=== PATIENT | male | born 1955 | race Caucasian/White ===

== ENCOUNTER → 2016-12-07 | Day surgery (SDC) | payer OTHER ==
[~2016-12-07] VITALS: Ht 180.3 cm; Wt 134.0 kg
[~2016-12-07] MED LIST: ALLO300T2 PO; BACITRACIN TOP OINT 15 GM TUBE ONE; BUPIVACAINE HCL PF 0.5% 30 ML VIAL ONE; CHLORHEXIDINE GLUCONATE 2 % 1 PACK (2 CLOTHS) TOPICAL PRN; DIAZ5 PO; HYDR-3533 PO; HYDR12.57 PO; IBUP-232 PO; INSULIN HUMAN REGULAR 1,000 UNITS/10 ML VIAL SQ PRN; LACTATED RINGER'S 1000 ML INJ 500 ML IV SCH; LACTATED RINGER'S 1000 ML IV PRN; LIDOCAINE HCL 2% 50 ML VIAL ONE; METOPROLOL TARTRATE 25 MG TAB PO PRN; MIDAZOLAM HCL 2 MG/2 ML VIAL ONE; NAPR250T PO; POTA4.25 PO; POVIDONE IODINE 5% (ANTISEPSIS KIT) 4 APPLICATIONS EACH NARE PRN; PROPOFOL 200 MG/20 ML AMP IV ONE; SODIUM CHLORID 0.9% 500 ML IV PRN; TELM40 PO; TYLE325T PO; VIAG50TA PO; ceFAZolin 2 GM PREMIX 50 ML IV SCH
[2016-12-07 10:51] VITALS: BP 134/86; PULSE 73; RESP 18; TEMP 97.5; O2SAT 97
--- NOTE | 2016-12-07 13:22 | EKG ---
Date Performed: 12/07/2016 Time Performed: 11:50:56 PTAGE: 61 years EKG: Sinus rhythm MODERATE INTRAVENTRICULAR CONDUCTION DELAY BORDERLINE ECG Compared to prior tracing no significant c j carlos PREVIOUS TRACING : 05/01/2010 13.49 DOCTOR: Tushar Ugalde Interpretating Date/Time 12/07/2016 13:20:31
[2016-12-07 13:30] VITALS: TEMP 98.1
--- NOTE | 2016-12-07 13:31 | PD.OP ---
Operative Report Preoperative Diagnosis: (1) Carpal tunnel syndrome, left (2) Ganglion of flexor tendon sheath of left thumb Postoperative Diagnosis: (1) Carpal tunnel syndrome, left (2) Ganglion of flexor tendon sheath of left thumb (3) stenosing tenosynovitis left thumb Procedure: open left carpal tunnel release flexor sheath ganglion excision left thumb trigger release left thumb Anesthesia: mac Surgeon: Sedrick Nuñez Student Development Dean(s): francisco Operation and Findings: tight carpal tunnel ligament with compression of the median nerve flexor sheath ganglion left thumb thickening of the A 1 haley left thumb Sedrick Nuñez MD Dec 07, 2016 13:31
[2016-12-07 14:15] VITALS: BP 103/72; PULSE 67; RESP 16; O2SAT 97
--- NOTE | 2016-12-07 15:10 | MP ---
cc: SEDRICK SANTACRUZ MD DATE OF SURGERY: 12/07/2016 PREOPERATIVE DIAGNOSIS 1. Carpal tunnel syndrome, left side. 2. Flexor sheath ganglion, left thumb. POSTOPERATIVE DIAGNOSIS 1. Carpal tunnel syndrome, left side. 2. Flexor sheath ganglion, left thumb. 3. Stenting tenosynovitis, left thumb. PROCEDURE 1. Open left carpal tunnel release. 2. Flexor sheath ganglion excision, left thumb. 3. Trigger release, left thumb. SURGEON Dr. Santacruz ANESTHESIA MAC. ESTIMATED BLOOD LOSS Minimal. TOURNIQUET TIME 47 minutes at 250 mmHg. SPECIMEN Specimen was sent for pathology. DISPOSITION The patient was recovered and sent to the recovery room in stable condition. INDICATIONS The patient is a 61-year-old male who presented with complaints of tingling and numbness involving the left hand of several years' duration and almost constant in nature. He also complained of worsening symptoms with restricted activities and symptoms at night of tingling and numbness. The patient also complained of a mass over the volar aspect of the left thumb. He had an attempted aspiration with recurrence of the mass. He had a tender nodule over the A1 haley region of the thumb with positive transillumination test. The patient was consented for open left carpal tunnel release and flexor sheath ganglion excision, left thumb. He was explained the risks and benefits of the procedure. DETAILS OF PROCEDURE The patient was brought to the operating room. Under MAC anesthesia the left upper extremity was thoroughly prepped and draped. An incision site was marked over the carpal tunnel region measuring 3-4 cm corresponding to the radial margin of the ring finger. An incision site was marked over the volar aspect of the thumb in a Gene zig-zag fashion measuring about 3 cm. The limb was exsanguinated using an Esmarch tourniquet. The tourniquet was inflated to 250 mmHg. About 8 cc of local anesthesia containing a mixture of 2% lidocaine and 0.5% Marcaine was injected across the incision site. The incision was made over the carpal tunnel region. Soft tissue dissection was carried out. Bleeding points were cauterized with bipolar cautery. Using a retractor the palmaris fascia was exposed. Initially this was released in a longitudinal fashion. The carpal tunnel ligament was exposed. The carpal tunnel ligament was released in a distal to proximal direction. Complete release was carried out. The deep volar forearm fascia was released. The median nerve was found to be compressed and adherent to the undersurface of the carpal tunnel ligament. The median nerve was from the carpal tunnel ligament by blunt dissection. After ensuring complete release the palmar skin was approximated using 5-0 nylon in a continuous horizontal mattress fashion. Attention was then directed to the base of the thumb. An incision was made over the volar aspect of the thumb in a zig-zag fashion. Skin flaps were elevated. The digital neurovascular bundles were protected out of harm's way. There was a flexor sheath ganglion arising from the A1 haley region of the thumb which was from surrounding soft tissue to the flexor sheath. The ganglion was excised. There was evidence of thickening of the A1 haley of the thumb and the decision was made to proceed with release of the A1 haley. The A1 haley was released in a proximal to distal direction. A complete release was carried out. There was evidence of mild fraying of the FPL tendon. The tendon was delivered out of the wound. The thumb was put through a range of motion. No evidence of constricting bands were noted. Proximally under vision constricting bands were using blunt dissection. A thorough wash was given. Skin flaps were then approximated using 5-0 nylon in a horizontal mattress interrupted fashion. Xeroform and bacitracin dressing was applied. Bulky hand dressing was applied which was held in place by Sof-Rol and bias hand wrap. The tourniquet was deflated. Total tourniquet time was 47 minutes. The patient had good distal circulation after release of the tourniquet. He was recovered and sent to the recovery room in stable condition. He will follow up with me in 2-3 days' time for dressing change. Sedrick Santacruz MD SE/MANJINDER /1:39 PM /2:53 PM AL
== END | disposition home or self-care (01) ==
LOC: PHSDC 09:55
PROVIDERS: ATTEND Surgery Surgery of the Hand
DX: G56.02 Carpal tunnel syndrome, left upper limb (principal); M67.442 Ganglion, left hand; M65.9 Synovitis and tenosynovitis, unspecified; I10 Essential (primary) hypertension; Z79.899 Other long term (current) drug therapy
CPT/HCPCS: 01810; 26055; 26160; 64721; 88304; 93005; J0690; J2250; J7120

== ENCOUNTER → 2017-02-17 | Outpatient (CLI) | payer OTHER ==
[~2017-02-17] MED LIST changes: -BACITRACIN TOP OINT 15 GM TUBE ONE; -BUPIVACAINE HCL PF 0.5% 30 ML VIAL ONE; -CHLORHEXIDINE GLUCONATE 2 % 1 PACK (2 CLOTHS) TOPICAL PRN; +DULO1CAP2 PO; -INSULIN HUMAN REGULAR 1,000 UNITS/10 ML VIAL SQ PRN; -LACTATED RINGER'S 1000 ML INJ 500 ML IV SCH; -LACTATED RINGER'S 1000 ML IV PRN; -LIDOCAINE HCL 2% 50 ML VIAL ONE; -METOPROLOL TARTRATE 25 MG TAB PO PRN; -MIDAZOLAM HCL 2 MG/2 ML VIAL ONE; -NAPR250T PO; -POVIDONE IODINE 5% (ANTISEPSIS KIT) 4 APPLICATIONS EACH NARE PRN; -PROPOFOL 200 MG/20 ML AMP IV ONE; -SODIUM CHLORID 0.9% 500 ML IV PRN; -ceFAZolin 2 GM PREMIX 50 ML IV SCH
[2017-02-17 16:16] LABS: MAGNESIUM 2.1 MG/DL (1.5-2.5); URIC ACID 6.6 MG/DL (2.6-7.2)
[2017-02-17 16:17] LABS: AUTOMATED NEUTROPHIL # 2.6 TH/MM3 (1.8-7.7); BASOPHIL % 0.7 % (0.0-2.0); EOSINOPHIL # 0.1 TH/MM3 (0-0.4); EOSINOPHIL % 1.8 % (0.0-4.0); HEMATOCRIT 41.4 % (39.0-51.0); HEMO FLAGS DIFF FINAL; LYMPH % 36.6 % (9.0-44.0); LYMPHOCYTE # 1.8 TH/MM3 (1.0-4.8); MEAN CORPUSCULAR HEMOGLOBIN 32.5 PG (27.0-34.0); MONO % 8.1 % (0.0-8.0); NEUT % 52.8 % (16.0-70.0); PLATELET COUNT 198 TH/MM3 (150-450); RED BLOOD COUNT 4.45 MIL/MM3 (4.50-5.90); RED CELL DISTRIBUTION WIDTH 13.5 % (11.6-17.2)
[2017-02-17 16:18] LABS: ANION GAP 8 MEQ/L (5-15); AST (GOT) 17 U/L (15-37); BICARBONATE 26.4 MEQ/L (21.0-32.0); BLOOD UREA NITROGEN 12 MG/DL (7-18); CHLORIDE 104 MEQ/L (98-107); GLOMERULAR FILTRATION RATE 73 ML/MIN (>89); GLUCOSE,FASTING 107 MG/DL (74-99); POTASSIUM 3.6 MEQ/L (3.5-5.1); SODIUM (NA) 138 MEQ/L (136-145)
[2017-02-17 16:20] LABS: ALKALINE PHOSPHATASE 58 U/L (45-117); ALT (GPT) 28 U/L (12-78); HDL CHOLESTEROL 39.2 MG/DL (40.0-60.0); LDL CHOLESTEROL 106 MG/DL (0-99); TOTAL BILIRUBIN ADULT 0.7 MG/DL (0.2-1.0)
[2017-02-17 21:25] LABS: HEMOGLOBIN A1a 0.9 %; HEMOGLOBIN A1b 1.7 %; HEMOGLOBIN Ao 86.3 %; HEMOGLOBIN LA1C 1.8 %; HEMOGLOBIN P3 3.5 %
== END ==
LOC: PLAB 11:49
PROVIDERS: ATTEND Internal Medicine Nephrology
DX: E55.9 Vitamin D deficiency, unspecified (principal); N20.0 Calculus of kidney; E78.2 Mixed hyperlipidemia; G47.00 Insomnia, unspecified; R73.01 Impaired fasting glucose; E16.1 Other hypoglycemia; I12.9 Hypertensive chronic kidney disease with stage 1 through stage 4 chronic kidney disease, or unspecified chronic kidney disease; N18.2 Chronic kidney disease, stage 2 (mild)
CPT/HCPCS: 36415; 80053; 80061; 82306; 83036; 83735; 83970; 84100; 84550; 85025

== ENCOUNTER → 2017-06-18 | Outpatient (CLI) | payer OTHER ==
[2017-06-18 14:03] LABS: PROSTATE SPECIFIC ANTIGEN 1.68 NG/ML (0.00-4.00)
== END ==
LOC: PLAB 11:22
DX: E55.9 Vitamin D deficiency, unspecified (principal); Z12.5 Encounter for screening for malignant neoplasm of prostate
CPT/HCPCS: 36415; 82306; 84153

== ENCOUNTER → 2017-11-02 | Outpatient (CLI) | payer OTHER ==
[2017-11-02 17:44] LABS: AUTOMATED NEUTROPHIL # 3.7 TH/MM3 (1.8-7.7); BASOPHIL % 0.6 % (0.0-2.0); EOSINOPHIL # 0.1 TH/MM3 (0-0.4); EOSINOPHIL % 2.1 % (0.0-4.0); HEMATOCRIT 45.9 % (39.0-51.0); LYMPH % 27.8 % (9.0-44.0); LYMPHOCYTE # 1.7 TH/MM3 (1.0-4.8); MEAN CELL VOLUME 93.5 FL (80.0-100.0); MEAN CORPUSCULAR HEMOGLOBIN 32.6 PG (27.0-34.0); MEAN CORPUSCULAR HGB CONC 34.9 % (32.0-36.0); MEAN PLATELET VOLUME 7.4 FL (7.0-11.0); MONO % 7.3 % (0.0-8.0); MONOCYTE # 0.4 TH/MM3 (0-0.9); NEUT % 62.2 % (16.0-70.0); PLATELET COUNT 183 TH/MM3 (150-450); RED BLOOD COUNT 4.91 MIL/MM3 (4.50-5.90); RED CELL DISTRIBUTION WIDTH 12.8 % (11.6-17.2)
== END ==
LOC: PLAB 13:25
PROVIDERS: ATTEND Surgery Surgery of the Hand
DX: I10 Essential (primary) hypertension (principal)
CPT/HCPCS: 36415; 85025

== ENCOUNTER → 2017-11-25 | Day surgery (SDC) | payer OTHER ==
[~2017-11-25] VITALS: Ht 180.3 cm; Wt 132.0 kg
[~2017-11-25] MED LIST changes: -ALLO300T2 PO; +BACITRACIN TOP OINT 15 GM TUBE ONE; +BUPIVACAINE HCL PF 0.5% 10 ML VIAL ONE; +CHLORHEXIDINE GLUCONATE 2 % 1 PACK (2 CLOTHS) TOPICAL PRN; +HYDR-3516 PO; -HYDR-3533 PO; -IBUP-232 PO; +LACTATED RINGER'S 1000 ML IV PRN; +LIDOCAINE HCL 1% PF 5 ML SYRINGE OTHER ONE; +LIDOCAINE HCL 2% 50 ML VIAL ONE; +MIDAZOLAM HCL 2 MG/2 ML VIAL ONE; +NEOMYCIN/POLYMYXIN 1 ML G.U. IRRIGANT ONE; +POTA10TA2 PO; -POTA4.25 PO; +POVIDONE IODINE 5% (ANTISEPSIS KIT) 4 APPLICATIONS EACH NARE PRN; +PROPOFOL 200 MG/20 ML AMP IV ONE; +SODIUM CHLORID 0.9% 500 ML IV PRN; -VIAG50TA PO; +ceFAZolin 2 GM/DEX PREMIX 50 ML IV SCH
--- NOTE | 2017-11-25 08:17 | PD.OP ---
Operative Report Preoperative Diagnosis: (1) mucous cyst distal interphalangeal left middle finger Postoperative Diagnosis: (1) mucous cyst distal interphalangeal left middle finger Procedure: excision mucous cyst left middle finger distal interphalangeal joint Anesthesia: MAC Surgeon: Sedrick Nuñez Time Study Technician(s): francisco Operation and Findings: mucous cyst distal interphalangeal joint left middle finger Sedrick Nuñez MD Nov 25, 2017 08:16
--- NOTE | 2017-11-25 08:54 | MP ---
cc: Sedrick Nuñez MD DATE OF OPERATION: 11/25/2017 PREOPERATIVE DIAGNOSIS: Mucous cyst distal interphalangeal joint, left middle finger. POSTOPERATIVE DIAGNOSIS: Mucous cyst distal interphalangeal joint, left middle finger. PROCEDURE PERFORMED: Excision mucous cyst distal interphalangeal joint, left middle finger. SURGEON: Sedrick Nuñez MD ANESTHESIA: MAC. ESTIMATED BLOOD LOSS: Minimal. TOURNIQUET: Finger [place] tourniquet 27 minutes. SPECIMENS: Specimen was sent to pathology. DISPOSITION: To PACU stable. INDICATIONS: The patient is a 62-year-old male who presented with complaints of a mass over the left middle finger distal interphalangeal joint region of several months duration and gradually increasing in size. He also gives a history of rupture of the cyst several weeks ago with clear gelatinous fluid drainage. On examination, he had a cyst along the dorsal radial aspect of the distal interphalangeal joint region. X-rays showed multiple joint arthritis. Because of the associated pain and recurrence of the cyst following drainage, the patient was consented for excision of mucous cyst. The patient was explained the risks and benefits of the procedure. DESCRIPTION OF PROCEDURE: The patient was brought to the operating room and under MAC anesthesia, the left upper extremity was sterilely prepped and draped. Incision site was marked in a transverse fashion over the dorsal aspect of the distal interphalangeal joint. About 9 mL of local anesthesia containing mixture of 2% lidocaine and 0.5% Marcaine was injected as a digital block. A finger [place] tourniquet was applied. Incision was then made over the proposed incision site. Soft tissue dissection was carried out. Attention was initially directed to the radial aspect. The soft tissue was cleared between the extensor tendon and the collateral ligament and the joint capsule was excised between the extensor tendon and the collateral ligament. The root of the cyst was identified. The cyst wall and the root was excised by elevating the skin in that region. Using a rongeur, the prominence over the distal interphalangeal joint was rongeured. Attention was then directed to the ulnar aspect. Soft tissue was cleared between the extensor tendon and the collateral ligament and capsulectomy was carried out between the extensor tendon and the collateral ligament. No other extensions were noted. Specimen was sent for pathology. A thorough wash was given using normal saline mixed with irrigant. After ensuring complete excision, the skin flaps were then approximated using 4-0 nylon in a horizontal mattress interrupted fashion. Xeroform, bacitracin dressing applied. The finger [place] tourniquet was removed. Total tourniquet time was 27 minutes. He had good distal circulation after release of the tourniquet. Xeroform, bacitracin dressing applied. A finger dressing was applied which was held in place by Ayana. The patient was sent to the recovery room in stable condition. He will followup with me in 2-3 days for a dressing change. Sedrick Nuñez MD SE/NOLA , 08:28 AM , 08:52 AM MTDD
[2017-11-25 09:10] VITALS: BP 118/68; PULSE 68; RESP 16; TEMP 98; O2SAT 94
== END | disposition home or self-care (01) ==
LOC: PHSDC 06:07
PROVIDERS: ATTEND Surgery Surgery of the Hand
DX: M71.342 Other bursal cyst, left hand (principal); I10 Essential (primary) hypertension
CPT/HCPCS: 01810; 26160; 88304; J0690; J2250; J3010; J7120